=== PATIENT | female | born 1955 | race Caucasian/White ===

== ENCOUNTER → 2016-08-08 | Outpatient (CLI) | payer OTHER | END | disposition disaster alternative care site (69) | LOC: GRAD 14:34 | DX: R91.1 Solitary pulmonary nodule (principal) ==

== ENCOUNTER 2016-09-17 15:06 | Emergency (ER) | payer OTHER ==
--- NOTE | ~2016-09-17 | ER ---
PATIENT'S NAME: JESUS ALBERTO EDMOND [facility] AGE: 61 Y [address] ROOM: [place] [id number] LOCATION: [facility] ADMIT DATE: 09/17/2016 ER/Outpatient Report DISCHARGE DATE: 09/17/2016 FAMILY PHYSICIAN: Yareli Sotelo MD ATTENDING PHYSICIAN: Daniel Al Time of Arrival: 1511 hours. Time of Evaluation: 1515 hours. CHIEF COMPLAINT: Back pain. HISTORY OF PRESENT ILLNESS: The patient has had problems with right lower back pain that radiates down back of her right leg and into her pelvis. It is a burning spasm type discomfort. She is on [place] for it, but last night had quite a bit more discomfort with it. This pain has been going on for at least 3 weeks. She did see Dr. Winchester and is scheduled to have an MRI on . She comes to the ER tonight wanting to do the MRI tonight versus waiting till . She has not had any recent fall. No recent acute change in her pain. Continues to have normal bowel movements. Urinating without any discomfort. ALLERGIES: NO KNOWN ALLERGIES. CURRENT MEDICATIONS: On her chart and reviewed by me. PAST MEDICAL HISTORY: Chronic back pain, COPD, anxiety, hypertension, hypercholesterol. PAST SURGICAL HISTORY: Surgery to her left foot, right knee, bilateral carpal tunnel. SOCIAL HISTORY: Denies use of tobacco or drugs. Does drink 2 vodka drinks per day. REVIEW OF SYSTEMS: All negative other than those mentioned in the HPI. PHYSICAL EXAMINATION: VITAL SIGNS: She weighs 70.7 kg, blood pressure is 141/85, pulse of 90, respirations 18, temperature of 98.1. GENERAL: She is awake, alert, and oriented x4. SKIN: [place], warm, and dry. PATIENT'S NAME: JESUS ALBERTO EDMON[facility] AGE: 61 Y [address] ROOM: [place] [id number] LOCATION: [facility] ADMIT DATE: 09/17/2016 ER/Outpatient Report DISCHARGE DATE: 09/17/2016 FAMILY PHYSICIAN: Yareli Sotelo MD ATTENDING PHYSICIAN: Daniel Al RESPIRATIONS: Even and nonlabored. Lung sounds are clear throughout. HEART: Regular rate and rhythm. EXTREMITIES: No peripheral edema noted. She does have strong peripheral pulses on the right. She does walk with a steady even gait. EMERGENCY DEPARTMENT COURSE: I discussed with the patient as she does not have any acute change in her back pain that we would not be able to do the MRI tonight in the ER that she would have to keep her scheduled appointment for . I did discuss with her some different pain medicine option to have better control of her pain. She states that Percocet made her itch, and she did not only like the way it felt. She states she has tried tramadol before, but it did not help. I did talk to her about Nucynta. She is willing to try it. IMPRESSION: Back pain, chronic versus acute. PLAN: Home, rest. Keep her scheduled appointment. Prescription is written for Nucynta. She is to follow up with Dr. Winchester as scheduled. She verbalized understanding. TAVO LAY APRN FOR MD ALEXA MARTINEZ/home /[id number] d: 09/17/162301 t: 10/08/16 1653, OUTPATIENT REPORT
== END 2016-09-17 15:30 | disposition disaster alternative care site (69) ==
LOC: GMED 15:06
DX: M54.5 Low back pain (principal); I10 Essential (primary) hypertension; J44.9 Chronic obstructive pulmonary disease, unspecified; F41.9 Anxiety disorder, unspecified; Z86.79 Personal history of other diseases of the circulatory system; Z86.39 Personal history of other endocrine, nutritional and metabolic disease; Z98.890 Other specified postprocedural states

== ENCOUNTER → 2016-09-20 | Outpatient (CLI) | payer OTHER | END | disposition disaster alternative care site (69) | LOC: GRAD 09-18 16:00 | DX: M47.816 Spondylosis without myelopathy or radiculopathy, lumbar region (principal); M54.5 Low back pain; S33.140D Subluxation of L4/L5 lumbar vertebra, subsequent encounter; M48.06 Spinal stenosis, lumbar region; M47.896 Other spondylosis, lumbar region; X58.XXXD Exposure to other specified factors, subsequent encounter ==

== ENCOUNTER → 2016-10-15 | Outpatient (CLI) | payer OTHER ==
--- NOTE | ~2016-10-15 | PUL ---
PATIENT'S NAME: JESUS ALBERTO EDMOND [facility] AGE: 61 Y [address] ROOM: [place] [id number] LOCATION: [facility] ADMIT DATE: 10/15/2016 Pulmonary DISCHARGE DATE: FAMILY PHYSICIAN: Yareli Sotelo MD ATTENDING PHYSICIAN: Olimpia Holliday NAME OF PROCEDURE: Pulmonary Function Test DATE OF PROCEDURE: October 15, 2016 TECH: ATripe, LINEN ATTENDANT REASON FOR EXAM: Reactive airway RESULTS: 1. FVC was 3.14 liters which is 103% of predicted and normal, FEV1 was 2.57 liters which is 109% of predicted and normal, and FEV1/FVC was 82% and normal. The flow volume curve did not reveal any significant airflow limitation. After bronchodilator administration FVC increased to 3.19 liters which is a 2% increase, and FEV1 increased to 2.72 liters which is a 6% increase. FEV1/FVC was 85%. 2. DLCO was 18.8 with an adjusted DLCO of 19.2 which is 96% of predicted and normal. 3. Total lung capacity was 5.09 liters which is 113% of predicted and normal, and residual volume was 1.73 liters which is 103% of predicted and normal. PHYSICIAN INTERPRETATION: The patient has no airflow limitation and no significant bronchodilator response. Her diffusion capacity is normal. There is no evidence of restrictive lung disease. Essentially this is a normal pulmonary function test. MD JASON CARRERA/vani /[id number] dtt: 10/18/16 0856 , OLIMPIA HOLLIDAY dtd: 10/17/16 1421
== END | disposition disaster alternative care site (69) ==
LOC: GRTH 10-01 09:00
DX: J45.909 Unspecified asthma, uncomplicated (principal)